=== PATIENT | female | born 2000 | race Caucasian/White ===

== ENCOUNTER → 2021-12-04 17:25 | Outpatient (CLI) | payer OTHER, SELFPAY ==
[2021-12-04 17:54] LABS: Appearance Urine UA CLEAR; Bilirubin Urine UA NEGATIVE (NEGATIVE); Color Urine UA YELLOW; Glucose Urine UA NEGATIVE (Negative); Ketones Urine UA NEGATIVE (NEGATIVE); Leukocyte Esterase Urine UA TRACE (NEGATIVE); Nitrite Urine UA NEGATIVE (Negative); Occult Blood Urine UA NEGATIVE (Negative); Protein Urine UA NEGATIVE (Negative); Urobilinogen Urine UA 0.2 E.U./dL (0.2)
[2021-12-04 18:09] LABS: pH Urine UA 5.5 (4.5-8.0)
[2021-12-04 18:19] LABS: Bacteria Urine Moderate (10-30); RBC Urine None Seen (0-5/HPF); Squamous Epithelial Cell Urine 1-5 /HPF (0-5/HPF); WBC Urine 0-1/HPF (0-5/HPF)
[2021-12-04 18:20] LABS: Culture Indicated Urine Specimen Cultured
[2021-12-04 18:24] LABS: Hematocrit 40.9 % (36-46); Hemoglobin 13.5 g/dL (12.0-16.0)
== END ==
PROVIDERS: Referring Provider Family Medicine; Visit Provider Family Medicine
DX: Z00.00 Encounter for general adult medical examination without abnormal findings (principal); Z71.84 Encounter for health counseling related to travel
CPT/HCPCS: 36415; 81001; 85014; 85018; 87086